=== PATIENT | female | born 1960 | race Caucasian/White ===

== ENCOUNTER → 2016-08-06 | Outpatient (CLI) | payer OTHER ==
[~2016-08-06] MED LIST: AMARYL4 MG PO; ASPIR 8181 MG PO; INVOKANA100 MG PO; LAC PO; LISINOPRIL10 MG PO; MAC100 PO; MULTI VIT PO; PRI20 PO; [UNRECOGNIZED DRUG - OTHER] PO
== END | disposition home or self-care (01) ==
LOC: MA 08:27
PROC: BH02ZZZ Plain Radiography of Bilateral Breasts (ICD-10-PCS; principal; 2016-08-06)
DX: Z12.31 Encounter for screening mammogram for malignant neoplasm of breast (principal)
CPT/HCPCS: G0202

== ENCOUNTER → 2018-03-24 | Outpatient (CLI) | payer OTHER | END | disposition home or self-care (01) | LOC: MA 03-23 10:30 | PROC: BH02ZZZ Plain Radiography of Bilateral Breasts (ICD-10-PCS; principal; 2018-03-24) | DX: Z12.31 Encounter for screening mammogram for malignant neoplasm of breast (principal) | CPT/HCPCS: 77067 ==

== ENCOUNTER → 2020-02-15 | Outpatient (CLI) | payer OTHER | END | disposition home or self-care (01) | LOC: MA 09:17 | PROC: BH02ZZZ Plain Radiography of Bilateral Breasts (ICD-10-PCS; principal; 2020-02-15) | DX: Z12.31 Encounter for screening mammogram for malignant neoplasm of breast (principal) | CPT/HCPCS: 77067 ==